=== PATIENT | male | born 1930 | race Caucasian/White ===

== ENCOUNTER 2017-02-13 09:31 | Emergency (ER) | payer MEDICARE ==
[~2017-02-13] VITALS: Ht 175.3 cm; Wt 81.6 kg
--- NOTE | 2017-02-13 09:43 | NUR ---
pt is in room #1b. dr agrawal evaluated the pt.
[2017-02-13] MEDS ORDERED: BENICAR 40 MG (09:47)
[2017-02-13] MEDS ORDERED: AMLODIPINE BESYLATE 2.5 MG (09:47)
[2017-02-13] MEDS ORDERED: METRONIDAZOLE 0.75% ×2 (09:47)
[2017-02-13] MEDS ORDERED: OLMESARTAN MEDOXOMIL 40 MG (09:47)
[2017-02-13] MEDS ORDERED: FUROSEMIDE 20 MG (09:47)
[2017-02-13] MEDS ORDERED: ATORVASTATIN 20MG TABLETS (09:47)
[2017-02-13] MEDS ORDERED: TAMSULOSIN 0.4 MG (09:47)
[2017-02-13] MEDS ORDERED: LORAZEPAM 1MG TABLETS (09:47)
[2017-02-13] MEDS ORDERED: ALLOPURINOL 100 MG (09:47)
[2017-02-13] MEDS ORDERED: LATANOPROST 0.005% (09:47)
[2017-02-13] MEDS ORDERED: IV NORMAL SALINE 1000 ML BAG IV ONE (10:00)
[2017-02-13 10:07] LABS: BASOPHILS % (AUTO) 0.1 % (0.0-2.0); EOSINOPHILS # (AUTO) 0.1 K/uL (0.0-0.7); HEMATOCRIT 27.3 % (40-50); HEMOGLOBIN 9.1 G/DL (14.0-18.0); LYMPHOCYTES # (AUTO) 0.8 K/UL (0.8-4.8); LYMPHOCYTES % (AUTO) 7.3 % (20.5-51.5); MEAN CORPUSCULAR HEMOGLOBIN 31.3 UUG (27.0-31.0); MEAN CORPUSCULAR HGB CONC 33 g/dL (32.0-37.0); MEAN CORPUSCULAR VOLUME 94.1 FL (82.0-92.0); MONOCYTES # (AUTO) 0.7 K/UL (0.1-1.30); MONOCYTES % (AUTO) 5.9 % (0.0-11.0); NEUTROPHILS # (AUTO) 9.6 K/UL (1.8-8.9); NEUTROPHILS % (AUTO) 85.7 % (38.5-71.5); PLATELET COUNT (AUTO) 207 K/UL (150-450); WHITE BLOOD COUNT (AUTO) 11.2 K/UL (4.0-11.2)
[2017-02-13 10:21] LABS: ALANINE AMINOTRANSFERASE 37 U/L (16-63); ALKALINE PHOSPHATASE 95 U/L (50-136); ASPARTATE AMINOTRANSFERASE 23 U/L (15-37); BILIRUBIN,DIRECT 0.1 mg/dL (0.0-0.2); BILIRUBIN,TOTAL 0.3 mg/dL (0.2-1.0); CARBON DIOXIDE 25 mmol/L (21-32); CREATININE 1.7 mg/dL (0.6-1.3); GLUCOSE 129 mg/dL (74-106); UREA NITROGEN, BLOOD 73 mg/dL (7-18)
[2017-02-13 10:27] LABS: CHLORIDE 112 mmol/L (98-107)
[2017-02-13 10:28] LABS: POTASSIUM 5.8 mmol/L (3.5-5.1)
[2017-02-13 11:31] LABS: *BILIRUBIN,URIN NEGATIVE (NEGATIVE); *BLOOD, URINE NEGATIVE (NEGATIVE); *CLARITY,URINE CLEAR (CLEAR); *COLOR,URINE YELLOW (YELLOW); *KETONES,URINE NEGATIVE (NEGATIVE); *PROTEIN,URINE NEGATIVE (NEGATIVE); *UROBILINOGEN,URINE 0.2 E.U./dl (NORMAL); LEUKOCYTE ESTERASE ,URINE NEGATIVE (NEGATIVE); NITRITE, URINE NEGATIVE (NEGATIVE); PH,URINE 5.5 (5.0-8.0); UGLUCOSE NEGATIVE (NEGATIVE)
--- NOTE | 2017-02-13 11:39 | NUR ---
PT LEFT HOSPITAL AMA OF DR CARRILLO. DR CARRILLO EXPLAINED ALL RISKS OF [facility] AMA TO THE PT. PT AND HIS FAMILY VERBALISED FULL UNDERSTANDING OF AMA INSTRUCTIONS. PT LEFT BY CAR WITH HIS FAMILY MEMBERS. NO S/S OF ACUTE DISTRESS AT THIS TIME.
[2017-02-13 11:40] LABS: BACTERIA,URINE NONE SEEN /HPF (NONE SEEN); RBC,URINE NONE SEEN /HPF (0-3); SQUAMOUS EPITHELIAL CELL,UR FEW /HPF (NONE SEEN); WBC,URINE 0-3 /HPF (0-3)
[2017-02-13 11:42] VITALS: BP 123/78
== END 2017-02-13 11:43 | disposition left against medical advice (07) ==
LOC: ER 09:31
DX: R55 Syncope and collapse (principal); D64.9 Anemia, unspecified; I50.9 Heart failure, unspecified; I10 Essential (primary) hypertension; E78.5 Hyperlipidemia, unspecified; H40.9 Unspecified glaucoma
CPT/HCPCS: 36415; 71010; 80048; 80076; 81001; 84484; 85025; 85730; 93005; 96360; 99285; A4663; J7030; 70030-TC